=== PATIENT | male | born 1945 | race Caucasian/White ===

== ENCOUNTER 2021-04-13 07:11 | Emergency (ER) | payer OTHER ==
[~2021-04-13] VITALS: Ht 162.6 cm; Wt 62.6 kg
[2021-04-13] MEDS ORDERED: LACTATED RINGERS 1000ML 1,000 ML IV ONE (08:00)
[2021-04-13 08:20] LABS: BASOPHILS % (AUTO) 0.4 % (0.0-5.0); EOSINOPHILS % (AUTO) 0.9 % (0.0-8.0); LYMPHOCYTES % (AUTO) 13.9 % (21.0-51.0); MEAN CORPUSCULAR HEMOGLOBIN 40.1 pg (27.0-33.0); MEAN CORPUSCULAR HGB CONC 33.5 g/dL (32.0-36.0); MEAN CORPUSCULAR VOLUME 119.7 fL (79-99); MONOCYTES % (AUTO) 14.2 % (3.0-13.0); NEUTROPHILS % (AUTO) 70.2 % (40.0-77.0); PLATELET COUNT (AUTO) 398 K/uL (130-400); RED BLOOD CELL COUNT(AUTO) 3.09 MIL/uL (4.50-6.20); RED CELL DISTRIBUTION WIDTH 11.9 % (11.0-15.5); WHITE BLOOD COUNT (AUTO) 5.6 K/uL (4.8-10.8)
[2021-04-13 08:34] LABS: CREATININE 0.9 mg/dL (0.5-1.5); POTASSIUM 3.9 mmol/L (3.5-5.1)
[2021-04-13 08:38] LABS: ALBUMIN 3.4 g/dL (3.5-5.0); BILIRUBIN,TOTAL 0.9 mg/dL (0.2-1.0); TOTAL PROTEIN, SERUM 7.5 g/dL (6.0-8.3)
[2021-04-13 09:12] LABS: APPEARANCE,URINE CLEAR (CLEAR); BILIRUBIN,URINE NEGATIVE (NEGATIVE); COLOR,URINE YELLOW (YELLOW); GLUCOSE, URINE (UA) NEGATIVE (NEGATIVE); KETONES,URINE NEGATIVE (NEGATIVE); LEUKOCYTE ESTERASE ,URINE NEGATIVE (NEGATIVE); NITRATE,URINE NEGATIVE (NEGATIVE); OCCULT BLOOD,URINE NEGATIVE (NEGATIVE); PROTEIN,URINE TRACE mg/dL (NEGATIVE); UROBILINOGEN,URINE 0.2 mg/dL (0.2-1.0)
[2021-04-13 09:40] LABS: BACTERIA,URINE None Seen /HPF (None Seen); RBC,URINE None Seen /HPF (0-1); WBC,URINE None Seen /HPF (0-1)
[2021-04-13] MEDS ORDERED: ONDANSETRON 4MG INJ IVP ONE (12:00)
[2021-04-13] MEDS ORDERED: LEVOFLOXACIN 500 MG/D5W 100 ML 100 ML IV SCH (12:00)
[2021-04-13] MEDS ORDERED: ONDA4TAB10 PO (14:49)
[2021-04-13] MEDS ORDERED: SULF1TAB42 PO (14:49)
[2021-04-13 15:05] VITALS: BP 135/74
== END 2021-04-13 15:06 | disposition home or self-care (01) ==
LOC: EDH 07:11
DX: K52.9 Noninfective gastroenteritis and colitis, unspecified (principal); E86.0 Dehydration; D64.9 Anemia, unspecified; K62.5 Hemorrhage of anus and rectum
CPT/HCPCS: 36415; 80053; 81001; 82270; 82550; 83630; 83690; 84484; 85025; 87046; 93005; 96361; 96365; 96375; 99285; J1956; J2405; J7120